=== PATIENT | male | born 1960 | race African-American/Black ===

== ENCOUNTER → 2022-09-10 | Emergency (ER) | payer OTHER ==
[~2022-09-10] VITALS: Ht 175.3 cm; Wt 72.6 kg
[~2022-09-10] MED LIST: ZESTORETIC 10-1 EACH PO
== END | disposition left against medical advice (07) ==
LOC: ER 13:21
DX: Z53.21 Procedure and treatment not carried out due to patient leaving prior to being seen by health care provider (principal)